=== PATIENT | male | born 1940 | race Caucasian/White ===

== ENCOUNTER → 2017-03-10 | Outpatient (CLI) | payer MEDICARE, OTHER ==
[~2017-03-10] MED LIST: AMLODIPINE BESY10 MG PO; ASPIRIN325 M1 PO; ASPIRIN81 MG PO; ATENOLOL PO; COZAAR PO; COZAAR100 MG PO; CRESTOR PO; CRESTOR10 MG PO; ENDOCET 5-3251 EACH PO; FINASTERIDE5 M1 PO; FLOMAX0.4 M1 PO; GLUCOVANCE 2.5/1 TA1 PO; GLUCOVANCE 5/501 TA2 PO; GLYBURIDE-METFO1 TA2 PO; GLYNASE PO; LEVAQUIN PO; LISINOPRIL-HCTZ1 T15 PO; LOVENOX40 MG/0.4 INJ; METFORMIN HCL500 M1 PO; NORVASC PO; PROSCAR5 MG PO; TENORMIN50 MG PO; ZYLOPRIM100 MG PO
--- NOTE | ~2017-03-10 | US6 ---
[facility] A Service of [facility] RADIOLOGY TEXT RESULTS PATIENT: IZA[facility] STINSON [facility] UNIT #: [id number] AGE: [address]: Homar Larson MD SEX: M ORDER DR: [id number] [place] [id number] O MR#: [id number] Acc #: [id number] NAME: IZAIAH STINSON : 1940 SEX: M STUDY DATE/TIME: 03/10/2017 9:39 UNIT: SGUS ROOM: STUDY DESCRIPTION: US Abdominal Limited Attending Physician: Homar Larson M.D. Referring Physician: Homar Larson M.D. Ordering Physician: Homar Larson M.D. Primary Care Physician: Homar Larson M.D. MEDICAL IMAGING REPORT This report is preliminary unless electronic signature is present. EXAM Right upper quadrant abdominal ultrasound INDICATIONS Elevated liver enzyme levels for the past week. TECHNIQUE Peters-scale and Doppler imaging of the abdomen. FINDINGS Visualized portions of pancreas are unremarkable. Liver measures 18.4 cm, has slightly increased echotexture compared with the right kidney. No liver lesions seen on submitted images. Uncomplicated cholelithiasis. Common duct measures 5 mm. The right kidney measures 11.5 cm and is unremarkable. IMPRESSION 1. Liver has a slightly increased echotexture compared with the right kidney, which could be normal for the patient or reflect very mild steatosis. 2. Uncomplicated cholelithiasis. 3. No evidence for bile duct dilation. Dictated by... Huey Duran M.D. THIS IS AN ELECTRONICALLY VERIFIED REPORT Huey Duran M.D. at 03/11/2017 8:28 AM EED/pcl [facility] A Service of [facility] RADIOLOGY TEXT RESULTS PATIENT: IZAIAH STINSON [facility] 36 UNIT #: [id number] AGE: [address]: Homar Larson MD SEX: M ORDER DR: TD: 03/10/2017 16:45 JOB #: [id number] MEDICAL IMAGING REPORT Page 1 of 1
== END | disposition home or self-care (01) ==
LOC: SGUS 09:13
DX: R79.89 Other specified abnormal findings of blood chemistry (principal); K80.20 Calculus of gallbladder without cholecystitis without obstruction
CPT/HCPCS: 76705